=== PATIENT | male | born 1995 | race Caucasian/White ===

== ENCOUNTER 2022-04-23 08:21 | Emergency (ER) | payer OTHER, SELFPAY ==
--- NOTE | 2022-04-23 08:22 | ED.GENADULT ---
HPI - General Adult General Stated complaint: Dehydration Time Seen by Provider: 04/23/22 08:22 Source: patient Mode of arrival: ambulatory Limitations: no limitations History of Present Illness HPI narrative: Mr. Manrique is a 26-year-old male patient presenting to the clinic today with complaints of possible dehydration. 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 States he has been trying to keep hydrated however, today he woke up feeling fatigued, feeling as though he is dehydrated, his arms are heavy and feels weak he states he has been drinking water and Gatorade. He also reports a mild headache. He reports that he was around somebody that tested positive for COVID at work for a very brief period of time. He denies any fever, chills, vomiting, nausea, diarrhea, or abdominal pain. No history of being diabetic. Review of Systems Review of Systems: Pertinent positives per HPI. Patient denies any fever, chills, rash, visual changes, dizziness, cough, runny nose, sore throat, shortness of breath, chest pain, palpitations, nausea, vomiting, diarrhea, constipation, abdominal pain, or any urinary issues. [facility] Comments At the time of my signature, I reviewed and agree with the nursing past medical, surgical, social, and family history. There is no relevant family history pertinent to the patient complaint. Exam Narrative: General: Well-developed, obese, in no apparent distress Head: Normocephalic, atraumatic Eyes: Pupils equally round and reactive to light bilaterally, EOM intact, sclera and conjunctive clear, no discharge, lids normal Ears: TMs intact and clear, ear canals clear, no drainage, grossly hearing normal. Nose: Nares patent, no discharge, no inflammation, no sinus tenderness. Mouth: Oropharynx without lesions or masses, good dentition, mucous membranes dry. Neck: Supple, trachea midline, no enlargement of anterior or posterior cervical nodes, no thyroid masses or goiter palpable. Cardio: Regular rate and rhythm, s1 and s2 normal, no murmur appreciated. Resp: Clear to auscultation bilaterally anteriorly and posteriorly, no rhonchi, rales, wheezing or rubs Course Course Emergency Course: Portions of this record may have been created with voice recognition software. Level of Care: Express Care Visit Vital Signs Vital signs: Vital signs reviewed Medical Decision Making MDM Narrative Medical decision making narrative: At the time of visit patient is resting comfortably on the exam table. UA obtained and was negative for any sign of infection, specific gravity was 1.025. COVID testing was completed and was negative in the clinic. Vital signs are stable. Patient's mucous membranes are pretty dry. I suspect that the patient has mild dehydration and fatigue due to heat exposure. I will give him a work note for 2 days and have him oral rehydrate. He is to follow-up with his PCP in 3 to 5 days if symptoms persist or sooner if they worsen. He voiced understanding of discharge instructions and agrees to the treatment plan. Differential Diagnosis Differential Diagnosis: Mild dehydration, fatigue, heat exhaustion Discharge Plan Discharge Clinical Impression: Fatigue, Mild dehydration, Heat exhaustion Patient Disposition: Home, Self-Care Condition: Stable Instructions: Dehydration (ED), Fatigue (ED), Heat Exhaustion (ED) Additional Instructions: Vital signs are stable, covid testing is negative, urine is negative for any sign of infection, specific gravity is 1.025 which is within normal limits. Increase fluids and stay [id number] 2 to 3 L of water per day Take frequent water breaks while at work Follow-up with your PCP in 3 to 5 days if symptoms persist or sooner if they worsen Follow-up/Referrals: PHYSICIAN,ASPARAGUS BUNCHER [Primary Care Provider] - Stand Alone Forms: Work/School Release IP Time of Disposition: 08:55 Quality NIHSS Nursing Documentation
[2022-04-23 08:35] VITALS: BP 137/81; PULSE 78; RESP 18; TEMP 36.6; O2SAT 100
== END 2022-04-23 09:01 | disposition home or self-care (01) ==
PROVIDERS: Emergency Provider Nurse Practitioner Family
DX: E86.0 Dehydration (principal); T67.5XXA Heat exhaustion, unspecified, initial encounter; X30.XXXA Exposure to excessive natural heat, initial encounter; Z20.822 Contact with and (suspected) exposure to COVID-19
CPT/HCPCS: 81003; 87426; 99213; C9803; G0463